=== PATIENT | female | born 1975 | race Caucasian/White ===

== ENCOUNTER 2017-09-02 16:54 | Emergency (ER) | payer OTHER ==
[~2017-09-02] VITALS: Ht 167.6 cm; Wt 60.4 kg
[2017-09-02 18:00] LABS: HEMATOCRIT 39.9 % (36.0-46.0); HEMOGLOBIN 13.6 G/DL (11.9-15.5); MCH 31.3 PG (29.0-34.0); MCHC 34.1 G/DL (30.0-36.0); MCV 91.9 FL (83-99); PLATELET COUNT 278 K/uL (156-360); RBC DIS.WIDTH-CV 12.5 % (11.8-14.6); RBC DIS.WIDTH-SD 42.5 % (39-53); RED BLOOD COUNT 4.34 M/uL (3.80-5.20); WHITE BLOOD COUNT 11.3 K/uL (4.1-10.2)
[2017-09-02 18:13] LABS: CHLORIDE 109 mEq/L (99-109); POTASSIUM 3.9 mEq/L (3.7-5.4); SODIUM 142 mEq/L (136-147)
[2017-09-02 18:14] LABS: GLUCOSE 104 mg/dL (70-99)
[2017-09-02 18:18] LABS: CREATININE 0.7 mg/dL (0.6-1.3)
[2017-09-02 18:19] LABS: GFR ESTIMATE (CALCULATED) > 59 mL/min/; UREA NITROGEN (BUN) 6 mg/dL (9-23)
[2017-09-02 18:26] LABS: TROP-I INTERPRETATION NEGATIVE; TROPONIN-I < 0.01 ng/mL (0.0-0.30)
[2017-09-02 18:27] LABS: QUANTITATIVE HCG < 4.0 MIU/ML
[2017-09-02 19:01] LABS: ALBUMIN 4.5 g/dL (3.2-4.8)
[2017-09-02 19:04] LABS: TOTAL PROTEIN 7.1 g/dL (6.4-8.3)
[2017-09-02 19:05] LABS: TOTAL BILIRUBIN 0.9 mg/dL (0.0-1.0)
[2017-09-02 19:06] LABS: ALKALINE PHOSPHATASE 81 IU/L (3-129)
[2017-09-02 19:09] LABS: AST (GOT) 15 IU/L (2-34); DIRECT BILIRUBIN 0.3 mg/dL (0.0-0.3)
[2017-09-02 19:10] LABS: ALT (GPT) 10 IU/L (3-49); LIPASE 13 U/L (1.0-51.0)
[2017-09-02] MEDS ORDERED: ULTRAM50 MG PO (21:08)
[2017-09-02 21:36] VITALS: BP 138/82
== END 2017-09-02 21:37 | disposition home or self-care (01) ==
LOC: EME 16:54
DX: R07.89 Other chest pain (principal); R10.13 Epigastric pain; F17.200 Nicotine dependence, unspecified, uncomplicated
CPT/HCPCS: 71046; 74177; 76705; 80048; 80076; 83690; 84484; 84702; 85027; 93005; 99281; 99284; J7030